=== PATIENT | male | born 1960 | race Caucasian/White ===

== ENCOUNTER 2018-01-11 10:09 | Inpatient (IN) | payer OTHER ==
[2017-12-20 13:28] VITALS: BMI 36.5
--- NOTE | 2018-01-11 07:56 | HP ---
[facility]ellite [facility] - Chief Complaint Chief Complaint: left hip pain - Past Medical History Allergies/Adverse Reactions: Allergies Allergy/AdvReac Type Severity Reaction Status Date / Time morphine Allergy Intermediate Rash Verified 12/20/17 13:19 haloperidol [From Haldol] AdvReac Intermediate JAW LOCKED Verified 12/20/17 13: 20 - Current Medications Current Medications: Home Medications Medication Instructions Recorded Ibuprofen 400 mg PO DAILY PRN 12/20/17 Satellite Physical Exam - Physical Examination General Appearance: Well Nourished, Well Developed, Alert & Oriented x3 ENT: Clear Lung: Normal air movement Heart: Regular rate & rhythm Extremities: Other (left hip- + ttp, decr rom, nvi xrays show grade 4 hip djd) Neurological: Intact, Alert, Oriented Satellite Impression/Plan - Impression/Plan Impression: left hip djd Operative Procedure: left prema thr Date to be Performed: 01/11/18
[2018-01-11] MEDS ORDERED: CEFAZOLIN 2 GM in DEXTROSE 5%-WATER - 50 ML IVPB ONE (11:34)
[2018-01-11] MEDS ORDERED: TRANEXAMIC ACID 1000 MG/10 ML VIAL IVPUSH ONE (11:34)
[2018-01-11] MEDS ORDERED: CELECOXIB 200 MG CAPSULE PO ONE (11:34)
[2018-01-11] MEDS ORDERED: GABAPENTIN 300 MG CAPSULE (FP) PO ONE (11:34)
[2018-01-11] MEDS ORDERED: oxyCODONE HCL 10 MG SUSTAINED ACTING TABLET PO ONE (11:34)
[2018-01-11] MEDS ORDERED: VANCOMYCIN 1,000 MG VIAL (RESTRICTED TO ID ONLY) ONE (13:14)
[2018-01-11] MEDS ORDERED: ceFAZolin SODIUM 1 GM VIAL ONE (13:14)
[2018-01-11] MEDS ORDERED: DEXAMETHASONE SOD PHOSPHATE/PF 10 MG/ML SDV ONE (13:18)
[2018-01-11] MEDS ORDERED: LIDOCAINE 1% P/F 10 MG/ML VIAL ONE (13:19)
[2018-01-11] MEDS ORDERED: MIDAZOLAM HCL 2 MG/2 ML SINGLE DOSE VIAL ONE (13:19)
[2018-01-11] MEDS ORDERED: BUPIVACAINE HCL/PF (5 MG/ML) 30 ML VIAL IJ ONE (13:19)
[2018-01-11] MEDS ORDERED: oxyCODONE HCL 5 MG TABLET PO PRN ×2 (15:18)
[2018-01-11] MEDS ORDERED: ONDANSETRON 4 MG/2 ML VIAL IVPUSH PRN ×2 (15:18→15:41)
[2018-01-11] MEDS ORDERED: VANCOMYCIN 1,000 MG VIAL (RESTRICTED TO ID ONLY) IVPB ONE (15:18)
[2018-01-11] MEDS ORDERED: LACTATED RINGERS SOLUTION 1,000 ML IV SCH ×2 (15:30→15:45)
[2018-01-11] MEDS ORDERED: MAG HYDROX/AL HYDROX/SIMETH 30 ML UNIT-DOSE CUP PO PRN (15:41)
[2018-01-11] MEDS ORDERED: MAGNESIUM HYDROX 2400MG/30ML ORAL SUSPENSION 30 ML CUP PO PRN (15:41)
--- NOTE | 2018-01-11 15:44 | OP ---
Operative Note - Note: Operative Date: 01/11/18 (maida) Pre-Operative Diagnosis: left hip djd Operation: left prema thr Post-Operative Diagnosis: Same as Pre-op Surgeon: Ridge Kong Leave Coordinator: Cecilio Hollins) Anesthesiologist/TOBY MAKER: Alix Amezcua Anesthesia: Spinal, Local Specimens Removed: femoral head Estimated Blood Loss (mls): 100 Operative Report Dictated: Yes
--- NOTE | 2018-01-11 15:58 | SPEC ---
DATE OF OPERATION: 01/11/2018 PREOPERATIVE DIAGNOSIS: Degenerative joint disease left hip. POSTOPERATIVE DIAGNOSIS: Degenerative joint disease left hip. PROCEDURE PERFORMED: Left total hip replacement with robotic-assisted navigation (MAKOplasty). SURGICAL ATTENDING: Ridge Kong MD COMMODITY MANAGEMENT SPECIALIST: ELEAZAR Cruz and Jaxon Zimmerman MD ANESTHESIA: Regional and spinal. CLOSURE: A Bobby total hip system with a 54 Trident II press-fit acetabulum, a 36 ceramic -2.5 mm head, and an Accolade II size 8 femoral stem, No. 1 Vicryl for fascia, 0 and 2-0 subcutaneous and 3-0 Monocryl subcuticular with skin glue, and 4-0 undyed Vicryl for pin sites. ESTIMATED BLOOD LOSS: Approximately 100 mL. COMPLICATIONS: None. CONDITION: To the recovery room in stable condition. DESCRIPTION OF PROCEDURE: The patient was taken to the operating room on January 11, 2018. General and regional anesthesia was administered by the anesthesiologist. IV Kefzol and TXA were administered prophylactically prior to the case. The patient was placed in the lateral decubitus position will all prominences well-padded. The left hip area was prepped and draped in the usual sterile fashion. Using 3 small stab incisions over the iliac crest, 3 threaded pins were drilled in power fashion through the 2 tables of the crest. These pins were fastened and the navigation array for the Salbador navigation system. Next, a 12 to 15-cm curved longitudinal incision over the posterolateral aspect of the greater trochanter was incised. Hemostasis was achieved with Bovie cautery. Sharp dissection was carried down to level of the fascia. The fascia was opened the entire length of the incision, spreading the fibers of the gluteus loni in the direction of origin. A Charnley retractor was placed in this layer. Care was taken not to impale the sciatic nerve. The short external rotators were detached off the insertion of the greater trochanter and peeled off the capsule. A posterior capsulotomy was then performed. A check point was malleted into the greater trochanter and a point on the inferior pole of the patella was obtained as well. These 2 points were used to assess the preoperative offset and limb lengths of the hip. The hip was then dislocated. The femoral neck was then osteotomized down to the appropriate level as directed by the navigation device. Anterior and posterior retractors were placed, exposing the acetabulum. A circumferential labral excision was performed. A check point was malleted into the acetabulum as well. Multiple sites inside the acetabulum and around the rim were utilized to register the acetabulum with the navigation device. An excellent registration of less than 0.5 mm was obtained. The hip was then reamed with the appropriate reamer down to the appropriate depth, with the appropriate orientation and version as assessed on our preoperative plan for this patient. The reamer was removed and the acetabulum was inspected to have good bleeding surfaces throughout. The real acetabular cup was then malleted down into place, with the holes in the appropriate position, until an excellent fixation was obtained. No screws were necessary. The navigation device ensured appropriate orientation and version, with the depth as predetermined. The appropriate liner was then clipped into place. Attention was directed to the femur. The proximal femur was prepared by use a box chisel, a canal finder and serial broaches until the broach achieved excellent rigidity in the proximal femur with the appropriate version being applied. A calcar planer was used to smooth off the calcar flush with the trial components. A trial reduction with the appropriate head was done, and the hip was reduced. The hip was taken through a range of motion from full extension with external rotation to marked flexion, and was stable at 90 degrees of flexion. It was stable to marked abduction and internal rotation, with a positive hang test and negative telescoping. Limb lengths were ascertained visually as well as with the navigation device to be within the targeted range for this patient. The trial component was removed. The real component was then malleted into place. The head was cold welded to the trunnion, and the hip was reduced. Range of motion, stability and limb lengths were as described in the trial component. Then the hip was pulse antibiotic irrigated. Vancomycin powder was placed in the hip joint. The capsule was closed. The fascia was then closed as well using number 1 Vicryl interrupted suture, 0 and 2-0 subcutaneous, and 3-0 V-Loc for the skin. 4-0 undyed Vicryl was used to close the pin sites after the pins were removed. All check points were also removed. Sterile Aquacel dressing was applied. The patient was awakened from anesthesia and transferred into the supine position. Bilateral SCDs and an abduction pillow were placed. X-rays revealed excellent position of the components. The patient was transferred to the recovery room in stable condition, with no complications. Estimated blood loss was less than 100 mL. Rae [id number] MTDD
[2018-01-11] MEDS ORDERED: ACETAMINOPHEN 325 MG TABLET (FP) ONE (16:25)
[2018-01-11] MEDS: ACETAMINOPHEN 325 MG TABLET (FP) PO SCH ×2 (16:33→21:54)
[2018-01-11] MEDS: CEFAZOLIN 2 GM/D5W 2 GM/50 ML ML IVPB SCH (21:53)
[2018-01-11] MEDS: SENNOSIDES/DOCUSATE COMBO (SENNA PLUS) TABLET (UD) PO SCH (21:53)
[2018-01-11] MEDS: GABAPENTIN 300 MG CAPSULE (FP) PO SCH (21:53)
[2018-01-11] MEDS: oxyCODONE HCL 10 MG SUSTAINED ACTING TABLET PO SCH (21:54)
[2018-01-12] MEDS: ACETAMINOPHEN 325 MG TABLET (FP) PO SCH ×4 (04:14→21:44)
[2018-01-12] MEDS: CEFAZOLIN 2 GM/D5W 2 GM/50 ML ML IVPB SCH (06:04)
--- NOTE | 2018-01-12 08:14 | PN ---
Progress Note (short form) - Note Progress Note: Ortho Pt seen and examined s/p left prema thr pod #1 Selected Entries 01/12/18 05:49 Temperature 98.2 F Pulse Rate 82 Respiratory 18 Rate Blood Pressure 92/57 Laboratory Tests 01/12/18 07:30 WBC Pending Hgb Pending Hct Pending Plt Count Pending dressing c/d/i, calf soft, nt nvi a/p PT hip precautions dvt ppx pain control d/c home tomorrow if stable
[2018-01-12 08:25] LABS: HEMATOCRIT 40.2 % (35.4-49); HEMOGLOBIN 13.9 GM/dl (11.7-16.9); MCH 30.5 pg (25.7-33.7); MCHC 34.6 g/dl (32.0-35.9); MEAN CELL VOLUME 88.1 fl (80-96); MEAN PLT VOLUME 7.9 fl (7.5-11.1); PLATELET COUNT 304 K/MM3 (134-434); RBC 4.57 M/mm3 (4.00-5.60); RDW 12.9 % (11.9-15.9); WHITE BLOOD COUNT 24.4 K/mm3 (4.0-10.8)
[2018-01-12] MEDS: LACTATED RINGERS SOLUTION 1,000 ML IV SCH (08:32)
[2018-01-12] MEDS: ASPIRIN 325 MG TABLET PO SCH (08:34)
[2018-01-12 08:53] LABS: PLATELET ESTIMATE ADEQUATE
[2018-01-12] MEDS: MULTIVITAMINS (DAILY MVI) TABLET (FP) PO SCH (10:48)
[2018-01-12] MEDS: PANTOPRAZOLE 40 MG TABLET (FP) PO SCH (10:48)
[2018-01-12] MEDS: FERROUS SO4 325 MG TABLET (FP) PO SCH (10:48)
[2018-01-12] MEDS: GABAPENTIN 300 MG CAPSULE (FP) PO SCH ×2 (10:48→21:41)
[2018-01-12] MEDS: oxyCODONE HCL 10 MG SUSTAINED ACTING TABLET PO SCH ×2 (10:49→21:40)
[2018-01-12] MEDS: SENNOSIDES/DOCUSATE COMBO (SENNA PLUS) TABLET (UD) PO SCH ×2 (10:49→21:40)
--- NOTE | 2018-01-12 11:08 | PN ---
Progress Note, Physician Chief Complaint: Pt. sitting comfortably in bed, good pain control with block and Tylenol. No anesthesia complaints. - Current Medication List Current Medications: Active Medications Acetaminophen (Tylenol -) 650 mg PO Q6H [facility] Stop: 01/14/18 16:29 Last Admin: 01/12/18 10:48 Dose: 650 mg Al Hydroxide/Mg Hydroxide (Mylanta Oral Suspension -) 30 ml PO Q4H PRN PRN Reason: DYSPEPSIA Aspirin (Asa -) 325 mg PO DAILY@0800 [facility] Last Admin: 01/12/18 08:34 Dose: 325 mg Fentanyl (Sublimaze Injection -) 50 mcg IVPUSH [id number] PRN PRN Reason: PAIN-PACU ORDER X 4 DOSES ONLY Ferrous Sulfate (Feosol -) 325 mg PO DAILY [facility] Last Admin: 01/12/18 10:48 Dose: 325 mg Gabapentin (Neurontin -) 300 mg PO BID [facility] Last Admin: 01/12/18 10:48 Dose: 300 mg Lactated Ringer's (Lactated Ringers Solution) 1,000 mls @ 125 mls/hr IV ASDIR [facility] Last Admin: 01/12/18 08:32 Dose: Not Given Magnesium Hydroxide (Milk Of Magnesia -) 30 ml PO PRN PRN PRN Reason: CONSTIPATION Multivitamins/Minerals/Vitamin C (Tab-A-Vit -) 1 tab PO DAILY [facility] Last Admin: 01/12/18 10:48 Dose: 1 tab Ondansetron HCl (Zofran Injection) 4 mg IVPUSH Q6H PRN PRN Reason: NAUSEA Oxycodone HCl (Roxicodone -) 5 mg PO Q3H PRN PRN Reason: PAIN LEVEL 1-5 Oxycodone HCl (Roxicodone -) 10 mg PO Q3H PRN PRN Reason: PAIN LEVEL 6-10 Oxycodone HCl (Oxycontin -) 10 mg PO BID [facility] Stop: 01/14/18 15:19 Last Admin: 01/12/18 10:49 Dose: Not Given Pantoprazole Sodium (Protonix -) 40 mg PO DAILY [facility] Last Admin: 01/12/18 10:48 Dose: 40 mg Senna/Docusate Sodium (Pericolace -) 2 tablet PO BID [facility] Last Admin: 01/12/18 10:49 Dose: 2 tablet - Objective Vital Signs: Vital Signs Temperature 98.2 F 01/12/18 05:49 Pulse Rate 82 01/12/18 05:49 Respiratory Rate 18 01/12/18 05:49 Blood Pressure 92/57 01/12/18 05:49 O2 Sat by Pulse Oximetry (%) 95 01/11/18 22:47 Constitutional: Yes: Well Nourished, No Distress, Calm Musculoskeletal: Yes: WNL Neurological: Yes: WNL, Alert, Oriented Labs: CBC, BMP 01/12/18 07:30 Assessment/Plan POD#1 s/p Left Total Hip Replacement under spinal. Doing well. D/C from anesthesia care.
[2018-01-12 22:43] VITALS: TEMP 98.7
[2018-01-13] MEDS: ACETAMINOPHEN 325 MG TABLET (FP) PO SCH ×2 (05:08→09:52)
[2018-01-13 06:37] VITALS: BP 112/58; PULSE 76
[2018-01-13] MEDS: LACTATED RINGERS SOLUTION 1,000 ML IV SCH (06:49)
[2018-01-13 08:16] LABS: HEMOGLOBIN 13.6 GM/dl (11.7-16.9)
--- NOTE | 2018-01-13 08:23 | PN ---
Progress Note (short form) - Note Progress Note: Ortho Pt seen and examined s/p left prema thr pod #2 Selected Entries 01/13/18 06:36 Temperature 98.7 F Pulse Rate 76 Respiratory 19 Rate Blood Pressure 112/58 Laboratory Tests 01/13/18 07:30 WBC Pending Hgb Pending Hct Pending Plt Count Pending dressing c/d/i, calf soft, nt nvi a/p PT hip precautions dvt ppx pain control d/c home today f/u in 1 week
--- NOTE | 2018-01-13 08:23 | DS ---
Physical Examination Vital Signs: Vital Signs Temperature 98.7 F 01/13/18 06:36 Pulse Rate 76 01/13/18 06:36 Respiratory Rate 19 01/13/18 06:36 Blood Pressure 112/58 01/13/18 06:36 O2 Sat by Pulse Oximetry (%) 96 01/13/18 06:36 Discharge Summary Procedures: Principal: left thr Hospital Course: admitted for elective left prema thr, uneventful post-op,stable for d/c Condition: Good - Instructions Diet, Activity, Other Instructions: Post-op Instructions-Total Hip Replacement Call the office for a follow-up appointment in 1 week - [phone] Aspirin 325mg daily for 6 weeks. Pain medication was sent into your pharmacy. Apply Graduated Compression Stockings (TEDs) to both lower extremities- remove daily for hygiene ONLY Apply Sequential Compression Device (SCDs) to both Lower extremities remove for PT and hygiene ONLY Apply cold packs to affected area for 15 minutes every 2 hours. Physical Therapist will come to your home for the first 5 days. You will be set up with outpatient PT at your first post-operative visit. Patient may ambulate as tolerated-encourage self care (at least every 2-3 hours while awake) with walker or cane Maintain Aquacel (waterproof) dressing to operative wound (will be removed by surgeon at first office visit) Shower with Aquacel dressing in place-if Aquacel integrity compromised, remove and apply dry sterile dressing and notify Orthopedist. DO NOT SHOWER unless Orthopedists approves without Aquacel dressing CONTACT THE OFFICE FOR ANY CHANGE IN YOUR CONDITION (for example-fever greater than 102 degrees, excessive bleeding from operative site, purulent drainage, severe swelling or pain) GO TO THE EMERGENCY ROOM IF THERE IS A MEDICAL EMERGENCY Hip Precautions: * Keep a rolled towel under affected heel while in bed or chair (to keep knee in extension) * Dependent upon approach: * Posterior - do not cross legs; do not sit on low chairs or toilets. * If you have any questions, please do not hesitate to call the office - . Referrals: Jaxon Zimmerman MD [Staff Physician] - Disposition: VNS/HOME HEALTH CARE - Home Medications Comprehensive Discharge Medication List: Ambulatory Orders Ibuprofen 400 mg PO DAILY PRN 12/20/17 Aspirin [ASA -] 325 mg PO DAILY@0800 tablet 07/31/18 Ferrous Sulfate [Iron] 325 mg PO DAILY 01/11/18 Oxycodone HCl/Acetaminophen [Percocet 5-325 mg Tablet -] 1 - 2 tab PO Q6H #50 tab MDD 8 01/11/18
[2018-01-13 08:35] LABS: HEMATOCRIT 39.7 % (35.4-49); MCH 30.3 pg (25.7-33.7); MCHC 34.3 g/dl (32.0-35.9); MEAN CELL VOLUME 88.3 fl (80-96); MEAN PLT VOLUME 8.1 fl (7.5-11.1); PLATELET COUNT 316 K/MM3 (134-434); RBC 4.49 M/mm3 (4.00-5.60); RDW 13.1 % (11.9-15.9)
[2018-01-13] MEDS: ASPIRIN 325 MG TABLET PO SCH (08:50)
[2018-01-13] MEDS: FERROUS SO4 325 MG TABLET (FP) PO SCH (09:51)
[2018-01-13] MEDS: GABAPENTIN 300 MG CAPSULE (FP) PO SCH (09:51)
[2018-01-13] MEDS: SENNOSIDES/DOCUSATE COMBO (SENNA PLUS) TABLET (UD) PO SCH (09:51)
[2018-01-13] MEDS: PANTOPRAZOLE 40 MG TABLET (FP) PO SCH (09:52)
[2018-01-13] MEDS: MULTIVITAMINS (DAILY MVI) TABLET (FP) PO SCH (09:52)
[2018-01-13] MEDS: oxyCODONE HCL 10 MG SUSTAINED ACTING TABLET PO SCH (10:35)
--- NOTE | 2018-01-17 15:22 | PATH ---
Surgical Pathology Report Patient Name: MIKE COOLEY Med. Rec. #: [id number] /Age/Gender: 1960 (Age: 57) / M Account: [id number] Location: [facility] MED-SURG Taken: 01/11/2018 Received: 01/11/2018 Reported: 01/17/2018 Physicians: Rae Renner M.D. Specimen(s) Received RIGHT FEMORAL HEAD Clinical History Osteoarthritis right hip Final Diagnosis FEMORAL HEAD, LEFT, TOTAL HIP REPLACEMENT: DEGENERATIVE JOINT DISEASE. Electronically Signed Kenisah Pham M.D. Gross Description Received in formalin, labeled "left femoral head," but indicated on the requisition to be a right femoral head, is a 4.4 x 4.4 x 4.2 cm. femoral head with a 1.5 cm in length portion of femoral neck attached. The margin of resection is smooth. There is a 3.4 cm in greatest dimension area of eburnation present. The remaining articular surface is briggs-yellow and diffusely granular. The underlying trabecular bone is yellow and hard. A marketing representative section is submitted in one cassette, following decalcification. 01/13/201801/13/2018
== END 2018-01-13 11:08 | disposition home health service (06) | DRG 470 ==
LOC: FM/S 10:58
PROVIDERS: ADMIT Orthopaedic Surgery; ATTEND Orthopaedic Surgery
PROC: 8E0Y0CZ Robotic Assisted Procedure of Lower Extremity, Open Approach (ICD-10-PCS; 2018-01-11)
PROC: 0SRB0JZ Replacement of Left Hip Joint with Synthetic Substitute, Open Approach (ICD-10-PCS; principal; 2018-01-11 14:00)
DX: M16.12 Unilateral primary osteoarthritis, left hip (principal)
CPT/HCPCS: 36415; 73502-TC-LT-FY; 85027; 88304-TC; 88311-TC; 97116-GP